=== PATIENT | female | born 1960 | race Caucasian/White ===

== ENCOUNTER → 2017-02-08 | Outpatient (CLI) | payer OTHER | LOC: FIMAGING 11:16 | PROVIDERS: ATTEND Family Medicine | DX: M79.605 Pain in left leg (principal); R22.42 Localized swelling, mass and lump, left lower limb; Z86.73 Personal history of transient ischemic attack (TIA), and cerebral infarction without residual deficits ==

== ENCOUNTER → 2017-08-30 | Outpatient (CLI) | payer OTHER | LOC: CIMAGING 08:03 | PROVIDERS: ATTEND Family Medicine | DX: Z12.31 Encounter for screening mammogram for malignant neoplasm of breast (principal) | CPT/HCPCS: G0202 ==

== ENCOUNTER → 2017-09-14 | Outpatient (CLI) | payer OTHER | LOC: CIMAGING 13:00 | PROVIDERS: ATTEND Family Medicine | DX: Z12.39 Encounter for other screening for malignant neoplasm of breast (principal); R92.8 Other abnormal and inconclusive findings on diagnostic imaging of breast | CPT/HCPCS: G0206 ==

== ENCOUNTER → 2018-10-04 | Outpatient (CLI) | payer OTHER | LOC: FIMAGING 15:29 | PROVIDERS: ATTEND Family Medicine | DX: Z12.31 Encounter for screening mammogram for malignant neoplasm of breast (principal) ==